=== PATIENT | male | born 1940 | race Caucasian/White ===

== ENCOUNTER 2021-03-19 11:23 | Emergency (ER) | payer MEDICARE, OTHER ==
[~2021-03-19] VITALS: Ht 157.5 cm; Wt 90.7 kg
--- NOTE | 2021-03-19 11:23 | NUR ---
LEIDY C/O RIGHT HEEL STRAY DOG BITE X2DAYS, -UDT TETANUS. VITAL SIGNS ARE WITHIN NORMAL LIMITS. BREATHING IS EVEN AND UNLABORED.
[2021-03-19 11:58] VITALS: BP 141/73
[2021-03-19] MEDS ORDERED: SILV20CR13 TP (12:02)
[2021-03-19] MEDS ORDERED: KETOROLAC TROMETHAMINE 15 MG/ML VIAL ONE (12:25)
[2021-03-19] MEDS ORDERED: KETOROLAC TROMETHAMINE INJ 30 MG/ML VIAL IM ONE (12:30)
== END 2021-03-19 12:41 | disposition home or self-care (01) ==
LOC: ER 11:29
DX: S91.331A Puncture wound without foreign body, right foot, initial encounter (principal); I10 Essential (primary) hypertension; W54.0XXA Bitten by dog, initial encounter; Y93.89 Activity, other specified; Y92.89 Other specified places as the place of occurrence of the external cause; Y99.8 Other external cause status
CPT/HCPCS: 96372; 99283; J1885

== ENCOUNTER 2021-10-07 00:30 | Emergency (ER) | payer MEDICARE, OTHER ==
[~2021-10-07] VITALS: Ht 167.6 cm; Wt 70.8 kg
[~2021-10-07 00:30] MED LIST: SILV20CR13 TP
--- NOTE | 2021-10-07 00:55 | NUR ---
BIBFAMILY C/O GENERALIZED WEAKNESS, POOR APETITE WITH N/V TESTED POSITIVE 5 DAYS AGO. UNKNOWN IF HE TOOK LORAZEPAM. PLACED PATIENT IN ISOLATION ROOM. VITALS CHECKED.
[2021-10-07] MEDS ORDERED: IV NS 0.9% 1,000 ML BAG IV ONE (01:00)
--- NOTE | 2021-10-07 01:10 | NUR ---
IV CANNULA G20 INSERTED ON LEFT HAND.
--- NOTE | 2021-10-07 01:17 | NUR ---
EKG DONE AT BEDSIDE
--- NOTE | 2021-10-07 01:26 | NUR ---
URINE SPECIMEN SENT TO LAB
--- NOTE | 2021-10-07 01:31 | NUR ---
PT BROUGHT TO CT DEPT
[2021-10-07 02:04] LABS: BASOPHILS % (AUTO) 0.3 % (0.0-2.0); EOSINOPHILS % (AUTO) 0.6 % (0.0-6.0); HEMATOCRIT 38 % (39-51); HEMOGLOBIN 12.1 g/dL (13.5-17.5); LYMPHOCYTES # (AUTO) 1.8 K/uL (0.8-4.8); LYMPHOCYTES % (AUTO) 29.2 % (20.0-44.0); MEAN CORPUSCULAR HGB CONC 32 g/dl (31.0-36.0); MEAN CORPUSCULAR VOLUME 95 fL (80-96); MONOCYTES # (AUTO) 0.6 K/uL (0.1-1.30); MONOCYTES % (AUTO) 10.5 % (2.0-12.0); NEUTROPHILS # (AUTO) 3.6 K/uL (1.8-8.9); NEUTROPHILS % (AUTO) 59.4 % (43.0-81.0); PLATELET COUNT (AUTO) 211 K/uL (150-450); RED BLOOD CELL COUNT(AUTO) 3.93 MIL/uL (4.5-6.0)
[2021-10-07 02:05] LABS: BILIRUBIN,URINE NEGATIVE (NEGATIVE); COLOR,URINE AMBER (YELLOW); LEUKOCYTE ESTERASE ,URINE NEGATIVE (NEGATIVE); NITRITE, URINE NEGATIVE (NEGATIVE); PH,URINE 5.5 (5.0-8.0); PROTEIN,URINE 30 mg/dl (NEGATIVE); UGLUCOSE NEGATIVE (NEGATIVE)
[2021-10-07 02:12] LABS: BACTERIA,URINE Rare /HPF (None Seen); RBC,URINE 0-2 /HPF (0-2); SQUAMOUS EPITHELIAL CELL,UR Few /HPF (None Seen)
[2021-10-07 02:13] LABS: MUCUS,URINE Moderate /LPF (None Seen)
[2021-10-07 02:17] LABS: CALCIUM, SERUM 8.4 mg/dL (8.5-10.1); CARBON DIOXIDE 24 mmol/L (21-32); CHLORIDE 103 mmol/L (98-107); CREATININE 1.1 mg/dL (0.6-1.3); GLUCOSE 108 mg/dL (74-106); SODIUM SERUM 134 mmol/L (136-145); UREA NITROGEN, BLOOD 25 mg/dL (7-18)
[2021-10-07 02:27] LABS: ALANINE AMINOTRANSFERASE < 6 U/L (12-78); ALBUMIN 2.9 g/dL (3.4-5.0); ALKALINE PHOSPHATASE 39 U/L (46-116); ASPARTATE AMINOTRANSFERASE 39 U/L (15-37); BILIRUBIN,DIRECT 0.3 mg/dL (0.0-0.2); BILIRUBIN,TOTAL 0.8 mg/dL (0.2-1.0); TOTAL PROTEIN, SERUM 7.3 g/dL (6.4-8.2)
--- NOTE | 2021-10-07 03:39 | NUR ---
STAT RAD PAGED
--- NOTE | 2021-10-07 04:00 | NUR ---
PATIENT IS ASLEEP. ADDITIONAL BLANKET GIVEN
--- NOTE | 2021-10-07 05:00 | NUR ---
CALLED FAMILY MEMBER YASMANY TWICE. LEFT VOICEMAIL TO CALL BACK FOR UPDATE OF PATIENT'S CONDITION
--- NOTE | 2021-10-07 08:32 | NUR ---
IV removed. Catheter intact and site benign. Pressure and 4x4 applied to site. No bleeding noted.
[2021-10-07 08:55] VITALS: BP 120/75
--- NOTE | 2021-10-07 08:55 | NUR ---
Patient discharged to home in stable condition. Written and verbal after care instructions given. Patient verbalizes understanding of instruction. Picked up by son via private car.
== END 2021-10-07 08:56 | disposition home or self-care (01) ==
LOC: ER 00:40
DX: U07.1 COVID-19 (principal); R53.1 Weakness; R11.10 Vomiting, unspecified; E86.0 Dehydration; R51.9 Headache, unspecified; I10 Essential (primary) hypertension; Z79.899 Other long term (current) drug therapy
CPT/HCPCS: 99285; 70450; 96360; 71045; 93005; 74176; 85025; 80048; 87086; 83605; 80076; 81001; 36415; 84484 ×2; J7030